=== PATIENT | female | born 1970 | race Caucasian/White ===

== ENCOUNTER 2021-03-17 12:51 | Outpatient (CLI) | payer BC, OTHER ==
[~2021-03-17 12:51] MED LIST: METO-539 PO
== END 2021-03-17 23:59 | disposition home or self-care (01) ==
LOC: RAD 12:51
PROVIDERS: ATTEND Nurse Practitioner Family
DX: R13.14 Dysphagia, pharyngoesophageal phase (principal); K21.9 Gastro-esophageal reflux disease without esophagitis; K44.9 Diaphragmatic hernia without obstruction or gangrene
CPT/HCPCS: 74230